=== PATIENT | female | born 1995 | race Caucasian/White ===

== ENCOUNTER → 2020-01-03 | Outpatient (RCR) | payer BC | LOC: PT 10:45 | PROVIDERS: ATTEND Specialist | DX: M22.2X2 Patellofemoral disorders, left knee (principal); M22.2X1 Patellofemoral disorders, right knee; M62.81 Muscle weakness (generalized) ==

== ENCOUNTER 2020-01-15 17:00 | Outpatient (RCR) | payer BC | END 2020-02-03 | LOC: PT 17:00 | PROVIDERS: ATTEND Specialist | DX: M22.2X2 Patellofemoral disorders, left knee (principal); M22.2X1 Patellofemoral disorders, right knee ==